=== PATIENT | female | born 1945 | race Hispanic/Latino ===

== ENCOUNTER 2017-11-07 04:48 | Emergency (ER) | payer OTHER ==
[2017-11-07 05:21] LABS: APPEARANCE,URINE Clear (CLEAR); BILIRUBIN,URINE Negative (NEGATIVE); COLOR,URINE Yellow (YELLOW); GLUCOSE, URINE (UA) Negative (NEGATIVE); KETONES,URINE Negative (NEGATIVE); LEUKOCYTE ESTERASE ,URINE Negative (NEGATIVE); NITRATE,URINE Negative (NEGATIVE); OCCULT BLOOD,URINE Small (NEGATIVE); PH,URINE 5.5 (5.0-8.0); PROTEIN,URINE Negative (NEGATIVE)
[2017-11-07 05:29] LABS: BACTERIA,URINE None Seen /HPF (None Seen); RBC,URINE 0-1 /HPF (0-1); SQUAMOUS EPITHELIAL CELL,UR Rare /HPF (0-2); WBC,URINE None Seen /HPF (0-1)
[2017-11-07 05:35] LABS: BASOPHILS % (AUTO) 0.3 % (0.0-5.0); EOSINOPHILS % (AUTO) 1.6 % (0.0-8.0); HEMATOCRIT 41.3 % (36-48); LYMPHOCYTES % (AUTO) 27.4 % (21.0-51.0); MEAN CORPUSCULAR HEMOGLOBIN 30.4 pg (27.0-33.0); MEAN CORPUSCULAR HGB CONC 34.7 g/dL (32.0-36.0); MEAN CORPUSCULAR VOLUME 87.5 fL (79-99); MONOCYTES % (AUTO) 9.5 % (3.0-13.0); NEUTROPHILS % (AUTO) 61.2 % (40.0-77.0); PLATELET COUNT (AUTO) 136 K/uL (130-400); RED BLOOD CELL COUNT(AUTO) 4.72 MIL/uL (4.00-5.50); RED CELL DISTRIBUTION WIDTH 14.6 % (11.0-15.5); WHITE BLOOD COUNT (AUTO) 8.5 K/uL (4.8-10.8)
[2017-11-07] MEDS ORDERED: IBUPROFEN 400 MG TABLET ONE (05:37)
[2017-11-07] MEDS ORDERED: IBUPROFEN 200 MG TAB ONE (05:38)
[2017-11-07 05:49] LABS: CREATININE 0.6 mg/dL (0.5-1.5); POTASSIUM 3.6 mmol/L (3.5-5.1)
[2017-11-07 06:02] LABS: ALBUMIN 3.4 g/dL (3.5-5.0); BILIRUBIN,TOTAL 0.4 mg/dL (0.2-1.0); TOTAL PROTEIN, SERUM 7.3 g/dL (6.0-8.3)
== END 2017-11-07 06:17 | disposition home or self-care (01) ==
LOC: EDH 04:48
DX: N81.10 Cystocele, unspecified (principal); N39.0 Urinary tract infection, site not specified; I10 Essential (primary) hypertension; Z88.6 Allergy status to analgesic agent
CPT/HCPCS: 36415; 51702; 80053; 81001; 85025

== ENCOUNTER 2018-10-08 05:30 | Observation (INO) | payer MEDICARE ==
[2018-10-07 12:28] LABS: BASOPHILS % (AUTO) 0.6 % (0.0-5.0); EOSINOPHILS % (AUTO) 0.7 % (0.0-8.0); HEMATOCRIT 44.7 % (36-48); LYMPHOCYTES % (AUTO) 34.5 % (21.0-51.0); MEAN CORPUSCULAR HEMOGLOBIN 29.4 pg (27.0-33.0); MEAN CORPUSCULAR HGB CONC 33.2 g/dL (32.0-36.0); MEAN CORPUSCULAR VOLUME 88.6 fL (79-99); MONOCYTES % (AUTO) 5.2 % (3.0-13.0); NUCLEATED RED BLOOD CELLS 0.1 % (0.0-0.19); PLATELET COUNT (AUTO) 204 K/uL (130-400); RED BLOOD CELL COUNT(AUTO) 5.05 MIL/uL (4.00-5.50); RED CELL DISTRIBUTION WIDTH 14.2 % (11.0-15.5); WHITE BLOOD COUNT (AUTO) 5.3 K/uL (4.8-10.8)
[2018-10-07 12:37] LABS: CREATININE 0.7 mg/dL (0.5-1.5); POTASSIUM 4.7 mmol/L (3.5-5.1)
[2018-10-07 12:57] VITALS: BP 133/70
[2018-10-08] VITALS (23 sets, daily range): BP systolic 109–138; BP diastolic 54–75
[~2018-10-08] VITALS: Ht 154.9 cm; Wt 71.6 kg
[~2018-10-08 05:30] MED LIST: LISI-613 PO; SULF1TAB3 PO; TRAM50TA4 PO
[2018-10-08] MEDS ORDERED: LACTATED RINGERS 1000ML 1,000 ML IV ONE (06:48)
[2018-10-08] MEDS: CEFAZOLIN SODIUM 1 GM VIAL ONE ×2 (07:03→07:25)
[2018-10-08] MEDS ORDERED: HYDROMORPHONE 1 MG/1 ML AMP ONE (07:22)
[2018-10-08] MEDS ORDERED: ROCURONIUM 10MG/1ML SYR 10 MG/ML ML ONE ×2 (07:23→07:40)
[2018-10-08] MEDS ORDERED: PROPOFOL 10 MG/ML 20ML VIAL IV ONE (07:23)
[2018-10-08] MEDS ORDERED: LIDOCAINE PF 2% 5ML ABBOJECT ONE (07:23)
[2018-10-08] MEDS ORDERED: ONDANSETRON HCL 4 MG/2 ML VIAL ONE (07:38)
[2018-10-08] MEDS ORDERED: FENTANYL CITRATE PF 50 MCG/1 ML 5ML AMP IV ONE (08:05)
[2018-10-08] MEDS ORDERED: METOCLOPRAMIDE 10 MG/2 ML VIAL ONE (08:44)
[2018-10-08] MEDS ORDERED: GLYCOPYRROLATE 1 MG/5 ML SYRINGE ONE (08:56)
[2018-10-08] MEDS ORDERED: NEOSTIGMINE 5MG/5ML SYR IV ONE (08:57)
[2018-10-08] MEDS ORDERED: BISACODYL 10 MG SUPP.RECT RC PRN (10:45)
[2018-10-08] MEDS ORDERED: PROMETHAZINE HCL 25 MG/ML 1ML AMPULE IM PRN ×2 (10:45)
[2018-10-08] MEDS ORDERED: SIMETHICONE 80 MG TAB.CHEW PO PRN (10:45)
[2018-10-08] MEDS ORDERED: ACETAMINOPHEN-CODEINE 300/30MG TAB PO PRN (10:45)
[2018-10-08] MEDS: MEPERIDINE-PF 75 MG/ML SYG IM PRN ×2 (12:16→20:53)
[2018-10-08] MEDS: DEXTROSE 5 %-0.45 % NACL 1,000 ML IV PRN ×2 (12:17→19:18)
[2018-10-09] VITALS (7 sets, daily range): BP systolic 101–118; BP diastolic 49–59
[2018-10-09] MEDS: DEXTROSE 5 %-0.45 % NACL 1,000 ML IV PRN (02:58)
[2018-10-09] MEDS ORDERED: IBUPROFEN 800 MG TAB PO PRN (05:00)
[2018-10-09] MEDS ORDERED: HYDROCODONE/ACETAMINOPHEN 5/325 MG TAB PO PRN (05:00)
[2018-10-09 05:48] LABS: HEMATOCRIT 39.4 % (36-48); MEAN CORPUSCULAR HEMOGLOBIN 29.5 pg (27.0-33.0); MEAN CORPUSCULAR HGB CONC 32.8 g/dL (32.0-36.0); MEAN CORPUSCULAR VOLUME 90.1 fL (79-99); PLATELET COUNT (AUTO) 155 K/uL (130-400); RED BLOOD CELL COUNT(AUTO) 4.37 MIL/uL (4.00-5.50); RED CELL DISTRIBUTION WIDTH 14.3 % (11.0-15.5); WHITE BLOOD COUNT (AUTO) 12.3 K/uL (4.8-10.8)
--- NOTE | 2018-10-09 08:30 | NUR ---
HALL BLADDER TRAINING STARTED, DEMONSTRATED HOW TO CLAMP HALL, HOW TO DRAIN HALL BAG; OOB TO CHAIR, STEADY GAIT, TEDs ADJUSTED, MEDICATED FOR ABDOMINAL DISCOMFORT; POC DISCUSSED, PT VERBALIZED UNDERSTANDING
[2018-10-09] MEDS: DOCUSATE SODIUM 100 MG CAP PO PRN ×2 (08:50→21:46)
[2018-10-09] MEDS: IBUPROFEN 600 MG TABLET PO PRN ×2 (08:51→16:55)
[2018-10-09] MEDS: SIMETHICONE 80 MG TAB.CHEW PO PRN ×2 (16:53→21:47)
--- NOTE | 2018-10-09 20:10 | NUR ---
ACTIVITY PT AMBULATING HALLWAY, STEADY GAIT, PASSING FLATUS, TOLERATING WELL
--- NOTE | 2018-10-09 20:30 | NUR ---
Suprapubic Catheter: Suprapubic Catheter intact, Incision site with scant amount of blood; cleaned with NS dressing applied with non woven drain sponges. Residual urine drained 45 ml after patient voided 200 ml clear yellow urine. Alexander bag at bedside connected to suprapubic catheter.
[2018-10-10 03:50] VITALS: BP 110/60
[2018-10-10 07:03] VITALS: BP 114/66
--- NOTE | 2018-10-10 08:40 | NUR ---
BLADDER TRAINING PT WAS ABLE TO DISCONNECT HALL BAG, CLAMP HALL ON OWN; LOLA CARE PROVIDED, ASSISTED WITH DRESSING CHANGE; PT OOB TO BATHROOM, DEMONSTRATED TO REMOVE URINE FROM HALL BAG, RETURN DEMONSTRATION COMPLETED, WAS ABLE TO DRAIN OWN BAG; POC DISCUSSED, PT VERBALIZED UNDERSTANDING
[2018-10-10] MEDS: DOCUSATE SODIUM 100 MG CAP PO PRN (08:57)
[2018-10-10] MEDS: SIMETHICONE 80 MG TAB.CHEW PO PRN (08:57)
[2018-10-10 11:27] VITALS: BP 101/62
[2018-10-10 15:56] VITALS: BP 140/73
--- NOTE | 2018-10-10 16:35 | NUR ---
DISCHARGE PT STABLE, NO PAIN, NO COMPLAINTS; PT LEFT UNIT, VIA WHEELCHAIR, ACCOMPANIED BY [facility] AND FAMILY [employer] CARRYING ALL PERSONAL BELONGINGS, INSTRUCTIONS, HALL BAG, AND PRESCRIPTION; PT LEFT FACILITY IN PERSONAL VEHICLE Addendum: 10/10/18 at 2022 by SUSAN LEYVA RN SUPRAPUBIC CATHETER IN PLACE AND PLUGGED FOR TRAINING
== END 2018-10-10 16:35 | disposition home or self-care (01) ==
LOC: DAH 05:30 → WSH 10:30
PROVIDERS: ADMIT Obstetrics & Gynecology; ATTEND Obstetrics & Gynecology
DX: N81.2 Incomplete uterovaginal prolapse (principal); K46.9 Unspecified abdominal hernia without obstruction or gangrene; N39.3 Stress incontinence (female) (male); I10 Essential (primary) hypertension; Z90.49 Acquired absence of other specified parts of digestive tract
CPT/HCPCS: 36415 ×2; 57260; 57288; 58262; 80048; 85025; 85027; 86850; 86900; 86901; 88302; 88305; 93005; 96372; A4218; A4344; A4351; A4510; A4600; A4606; C1771; G0378 ×53; J0690; J1170; J2001; J2175 ×2; J2405; J2550 ×2; J2704; J2710; J2765; J3010; J3490; J7030; J7120 ×2

== ENCOUNTER 2022-04-30 10:49 | Emergency (ER) | payer MEDICARE, OTHER ==
[~2022-04-30] VITALS: Ht 157.5 cm; Wt 73.9 kg
[~2022-04-30 10:49] MED LIST changes: -LISI-613 PO; +LISI20TA24 PO; -SULF1TAB3 PO
[2022-04-30] MEDS ORDERED: TRAMADOL HCL 50 MG TABLET PO ONE (12:30)
[2022-04-30] MEDS ORDERED: KETOROLAC 60 MG VIAL (30MG/ML) IM ONE (12:30)
[2022-04-30] MEDS ORDERED: TRAM50TA4 PO (13:15)
[2022-04-30 14:52] VITALS: BP 124/61
== END 2022-04-30 14:52 | disposition home or self-care (01) ==
LOC: EDH 10:49
DX: M54.17 Radiculopathy, lumbosacral region (principal); M43.16 Spondylolisthesis, lumbar region; E78.00 Pure hypercholesterolemia, unspecified; I10 Essential (primary) hypertension; Z88.6 Allergy status to analgesic agent; Z88.8 Allergy status to other drugs, medicaments and biological substances; Z79.899 Other long term (current) drug therapy; Z98.890 Other specified postprocedural states; Z90.49 Acquired absence of other specified parts of digestive tract
CPT/HCPCS: 99284; 72131; 96372; J1885

== ENCOUNTER 2022-05-02 21:59 | Emergency (ER) | payer OTHER ==
[~2022-05-02] VITALS: Ht 157.5 cm; Wt 73.9 kg
[2022-05-02 22:45] VITALS: BP 137/62
[2022-05-03] MEDS ORDERED: TRIAMCINOLONE ACETONIDE 40 MG/ML 1ML VIAL ONE (00:16)
[2022-05-03] MEDS ORDERED: BUPIVACAINE/PF 0.25% 30ML VIAL IJ ONE (00:17)
[2022-05-03] MEDS ORDERED: BUPIVACAINE/PF 0.5% 30ML VIAL ONE (00:18)
[2022-05-03] MEDS ORDERED: BUPIVACAINE/PF 0.5% 10ML VIAL IJ ONE (00:30)
[2022-05-03] MEDS ORDERED: TRIAMCINOLONE ACETONIDE 40 MG/ML 1ML VIAL SQ ONE (00:30)
[2022-05-03] MEDS ORDERED: PRED20TA3 PO (00:34)
== END 2022-05-03 00:53 | disposition home or self-care (01) ==
LOC: EDH 21:59
DX: M54.17 Radiculopathy, lumbosacral region (principal); M46.1 Sacroiliitis, not elsewhere classified; M79.18 Myalgia, other site; E78.00 Pure hypercholesterolemia, unspecified; I10 Essential (primary) hypertension; Z90.49 Acquired absence of other specified parts of digestive tract
CPT/HCPCS: 99284; 20552; J3490 ×2; J3301